=== PATIENT | female | born 1955 | race Caucasian/White ===

== ENCOUNTER 2017-02-27 15:51 | Emergency (ER) | payer OTHER ==
[2017-02-27 16:33] VITALS: BP 144/73
--- NOTE | 2017-02-27 17:26 | EDM.PDOC ---
ED HPI GENERAL MEDICAL PROBLEM - General Chief Complaint: Gastrointestinal Problem Stated Complaint: GASTROINTESTINAL ISSUES Time Seen by Provider: 02/27/17 17:00 Source of Information: Reports: Patient History Limitations: Reports: No Limitations - History of Present Illness INITIAL COMMENTS - FREE TEXT/NARRATIVE: PT HAD A COURSE OF CLINDOMYCIN THE FIRST WEEK IN FEB. hE HAS HAD DIARRHEA FOR ABOUT 1 WEEK. tHIS IS MUCOUS AND FREQUENT STOOLS. Onset: Today, Gradual Duration: Day(s): Location: Reports: Abdomen Associated Symptoms: Reports: Loss of Appetite - Related Data Allergies Allergy/AdvReac Type Severity Reaction Status Date / Time diphenhydramine Allergy Hyperactivi Verified 02/27/17 16:42 [From Benadryl] ty Sulfa (Sulfonamide Allergy Hives Verified 02/27/17 16:42 Antibiotics) Home Meds: Home Meds Cetirizine HCl [Zyrtec] 10 mg PO DAILY 02/27/17 [History] ClonazePAM [KlonoPIN] 0.5 mg PO BID 02/27/17 [History] Escitalopram [Lexapro] 20 mg PO DAILY 02/27/17 [History] Fluticasone Propionate [Flonase] 1 spray APRYL DAILY PRN 02/27/17 [History] Levothyroxine Sodium [Synthroid] 125 mcg PO DAILY 02/27/17 [History] Simvastatin [Zocor] 20 mg PO DAILY 02/27/17 [History] lamoTRIgine [Lamictal] 200 mg PO DAILY 02/27/17 [History] traZODone 25 mg PO BEDTIME 02/27/17 [History] Past Medical History HEENT History: Reports: Cataract Cardiovascular History: Reports: High Cholesterol Gastrointestinal History: Reports: Cholelithiasis [employer] History: Reports: Psychiatric History: Reports: Anxiety, Depression, Panic Attack Endocrine/Metabolic History: Reports: Hypothyroidism - Past Surgical History HEENT Surgical History: Reports: Cataract Surgery GI Surgical History: Reports: Cholecystectomy Social & Family History - Tobacco Use Smoking Status *Q: Never Smoker - Caffeine Use Caffeine Use: Reports: Coffee, Soda - Recreational Drug Use Recreational Drug Use: No ED ROS GENERAL - Review of Systems Review Of Systems: See Below Constitutional: Reports: No Symptoms HEENT: Reports: No Symptoms Respiratory: Reports: No Symptoms Cardiovascular: Reports: No Symptoms Endocrine: Reports: No Symptoms GI/Abdominal: Reports: Diarrhea, Other (MUCOUS LIKE STOOLS. ) : Reports: No Symptoms Musculoskeletal: Reports: No Symptoms Skin: Reports: No Symptoms Neurological: Reports: No Symptoms ED EXAM, GI/ABD - Physical Exam Exam: See Below Text/Narrative:: pt arrived with a history of 1 week of diarrhea-- mucousy and frequent stools. Exam Limited By: No Limitations General Appearance: Alert, Anxious Ears: Normal TMs Nose: Normal Inspection Throat/Mouth: Normal Inspection Head: Atraumatic Neck: Normal Inspection Respiratory/Chest: No Respiratory Distress Cardiovascular: Regular Rate, Rhythm GI/Abdominal Exam: Soft, Tender, Other ( IN LOWER ABDOMAN. ) (Female) Exam: Deferred Rectal (Female) Exam: Deferred Back Exam: Normal Inspection Extremities: Normal Inspection Neurological: Alert, Oriented, Normal Cognition Psychiatric: Normal Affect Course - Vital Signs Last Recorded V/S: Last Vital Signs Temp 36.6 C 02/27/17 16:38 Pulse 98 02/27/17 16:38 Resp 16 02/27/17 16:38 BP 144/73 H 02/27/17 16:38 Pulse Ox 93 L 02/27/17 16:38 - Orders/Labs/Meds Orders: Active Orders 24 hr Category Date Time Status Sodium Chloride 0.9% [Normal Saline] 1,000 ml Med 02/27/17 17:30 Active IV ASDIRECTED Medication Orders Sodium Chloride (Normal Saline) 1,000 mls @ 999 mls/hr IV ASDIRECTED LYNETTE Last Admin: 02/27/17 17:30 Dose: 999 mls/hr Labs: Laboratory Tests 02/27/17 02/27/17 02/27/17 Range/Units 17:31 17:31 18:39 WBC 7.1 (4.5-11.0) K/uL RBC 4.40 (3.30-5.50) M/uL Hgb 12.8 (12.0-15.0) g/dL Hct 40.1 (36.0-48.0) % MCV 91 (80-98) fL MCH 29 (27-31) pg MCHC 32 (32-36) % Plt Count 341 (150-400) K/uL Neut % (Auto) 63 (36-66) % Lymph % (Auto) 21 L (24-44) % Starke % (Auto) 15 H (2-6) % Eos % (Auto) 0 L (2-4) % Baso % (Auto) 1 (0-1) % Sodium 141 (140-148) mmol/L Potassium 3.5 L (3.6-5.2) mmol/L Chloride 104 (100-108) mmol/L Carbon Dioxide 28 (21-32) mmol/L Anion Gap 12.5 (5.0-14.0) mmol/L BUN 7 (7-18) mg/dL Creatinine 0.8 (0.6-1.0) mg/dL Est Cr Clr Drug Dosing 58.41 mL/min Estimated GFR (MDRD) > 60 (>60) Glucose 92 (74-106) mg/dL Calcium 8.5 (8.5-10.1) mg/dL Total Bilirubin 0.3 (0.2-1.0) mg/dL AST 17 (15-37) U/L ALT 20 (12-78) U/L Alkaline Phosphatase 70 (46-116) U/L Total Protein 7.4 (6.4-8.2) g/dL Albumin 3.6 (3.4-5.0) g/dL Globulin 3.8 H (2.3-3.5) g/dL Albumin/Globulin Ratio 1.0 L (1.2-2.2) Urine Color Yellow Urine Appearance Clear Urine pH 6.0 (4.5-8.0) Ur Specific [place] 1.010 (1.008-1.030) Urine Protein Negative (NEGATIVE) mg/dL Urine Glucose (UA) Normal (NEGATIVE) mg/dL Urine Ketones 15 H (NEGATIVE) mg/dL Urine Occult Blood Negative (NEGATIVE) Urine Nitrite Negative (NEGATIVE) Urine Bilirubin Negative (NEGATIVE) Urine Urobilinogen Normal (NORMAL) mg/dL Ur Leukocyte Esterase Negative (NEGATIVE) Urine RBC 0-5 (0-5) Urine WBC 0-5 (0-5) Ur Epithelial Cells Rare Amorphous Sediment Few Urine Bacteria Rare Urine Mucus Few Meds: Medications Generic Name Dose Route Start Last Admin Trade Name Freq PRN Reason Stop Dose Admin Sodium Chloride 1,000 mls @ 999 mls/hr 02/27/17 17:30 02/27/17 17:30 Normal Saline IV 999 mls/hr ASDIRECTED LYNETTE Administration - Re-Assessments/Exams Free Text/Narrative Re-Assessment/Exam: 02/27/17 19:12 CLOST DIFF WAS POSITIVE. Departure - Departure Time of Disposition: 19:03 Disposition: Home, Self-Care 01 Condition: Fair Clinical Impression: Clostridium difficile colitis, Dehydration - Discharge Information Referrals: PCP,None [Primary Care Provider] - Forms: ED Department Discharge Care Plan Goals: push fluids, use yogurt and probiotic, vancomycin 250mg q6h for 10 days. - My Orders Last 24 Hours: My Active Orders 02/27/17 17:30 Sodium Chloride 0.9% [Normal Saline] 1,000 ml IV ASDIRECTED - Assessment/Plan Last 24 Hours: My Active Orders 02/27/17 17:30 Sodium Chloride 0.9% [Normal Saline] 1,000 ml IV ASDIRECTED
[2017-02-27] MEDS ORDERED: Sodium Chloride 0.9% 1,000 ML IV SCH (17:30)
== END 2017-02-27 19:20 | disposition home or self-care (01) ==
LOC: JP.ED 15:51
DX: E86.0 Dehydration (principal); A04.7 Enterocolitis due to Clostridium difficile; E03.9 Hypothyroidism, unspecified; E78.00 Pure hypercholesterolemia, unspecified; F41.9 Anxiety disorder, unspecified; F32.9 Major depressive disorder, single episode, unspecified; Z88.8 Allergy status to other drugs, medicaments and biological substances; Z90.49 Acquired absence of other specified parts of digestive tract; Z88.2 Allergy status to sulfonamides; Z79.899 Other long term (current) drug therapy
CPT/HCPCS: 36415; 80053; 81001; 85025; 87493; 96360; 99284; J7040